=== PATIENT | male | born 1970 | race Caucasian/White ===

== ENCOUNTER → 2022-12-24 09:33 | Outpatient (CLI) | payer OTHER, SELFPAY ==
--- NOTE | ~2022-12-24 | US_ITS ---
EXAMINATION: US venous doppler [facility] DATE: 12/24/2022 10:06 INDICATION: L LE venous doppler to evaluate for DVT . TECHNIQUE: Grayscale images without and with compression and Doppler images of the left lower extremi ty veins were obtained. COMPARISON: None FINDINGS: The left common femoral vein, profunda femoral vein, femoral vein, popliteal vein, peroneal vein, pos terior tibial veins, gastrocnemius vein, and greater saphenous vein are patent. IMPRESSION: 1. Patent left lower extremity veins. No evidence of deep venous thrombosis. Reviewed, dictated and finalized at location K.
== END ==
PROVIDERS: PCP Physician Assistant; Visit Provider Physician Assistant
DX: I82.409 Acute embolism and thrombosis of unspecified deep veins of unspecified lower extremity (principal)
CPT/HCPCS: 93971

== ENCOUNTER 2025-05-19 07:14 | Outpatient (CLI) | payer BC, SELFPAY ==
--- OUTSIDE RECORDS SUMMARY | 2025-05-19 07:18 | XMS_ITS | Encounter Summary ---
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 Gender Identity Not on file Sexual Orientation Not on file documented as of this encounter Plan of Treatment Upcoming Encounters Date Type Department Care Team (Late st Contact Info) Description 05/25/2025 6:30 AM CDT Appointment [facility] [place] [address] Sumanth Fuller DO [address] [facility] [place] [address] documented as of this encounter Visit Diagnoses Not on filedocumented in this encounter Care Teams Timber Surveyor Relationship Specialty Start Date End Date None, Provider, PCP - General 05/07/22 05/17/25 Sumanth Fuller DO [address] [facility] [place] [address] PCP - General INTERNAL MEDICINE 05/18/25 documented as of this encounter
--- OUTSIDE RECORDS SUMMARY | 2025-05-19 07:18 | XMS_ITS | Patient Health Record ---
Author Organization [facility] Address [address] [place] [address] Support Name Relationship Address Phone Ruben Zelaya Guarantor Unknown [phone] Reason For Referral No Information Problems Problem Type SNOMED Code ICD Code Onset Dates Problem Status W/U Status Risk Notes Problem Hallux valgus (acquired) (unspecified foot) (M20.10) 01/31/2016 Active confirmed Plan Of Treatment No Information Insurance Providers Payer Name Payer Address Payer Phone Subscriber Number Group Number Insured Name Patient Relationship to Insured Coverage Start Date Coverage End Date [facility] [address] [place], [place] [id number] Ruben Zelaya Self - patient is the insured 6 Medical (General) History Surgical History Surgery Date(Month/Year) Surgery Foot surgery left foot
--- OUTSIDE RECORDS SUMMARY | 2025-05-19 07:18 | XMS_ITS | Clinical Summary ---
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 Gender Identity Not on file Sexual Orientation Not on file Last Filed Vital Signs Vital Sign Reading Time Taken Comments Blood Pressure 152/103 06/14/2022 6:50 AM CDT Pulse 79 06/14/2022 6:50 AM CDT Temperature 36.2 C (97.1 F) 06/14/2022 6:50 AM CDT Respiratory Rate 20 06/14/2022 6:50 AM CDT Oxygen Saturation 97% 06/14/2022 6:50 AM CDT Inhaled Oxygen Concentration - - Weight 87.1 kg (192 lb) 06/14/2022 6:50 AM CDT Height 180.3 cm (5' 11) 06/14/2022 6:50 AM CDT Body Mass Index 26.78 06/14/2022 6:50 AM CDT Plan of Treatment Upcoming Encounters Date Type Department Care Team (Late st Contact Info) Description 05/25/2025 6:30 AM CDT Appointment [facility] [place] [address] Sumanth Fuller DO [address] [employer] [facility] [place] [address] Health Maintenance Due Date Last Done Comments Colorectal Cancer Screening Colonoscopy (10 Years) 1968 Annual Physical 1971 Hepatitis C 1986 DTaP, Tdap and Td Vaccines ( 1 - Tdap) 1987 Hepatitis B Vaccines (1 of 3 - 19+ 3-dose series) 1987 Pneumococcal Vaccine: 50+ Ye ars (1 of 1 - PCV) 2018 Zoster Vaccines (1 of 2) 2018 COVID-19 Vaccine ( - 2023-2 5 season) 2024 Meningococcal B Vaccine Aged Out No l onger eligible based on patient's age to complete this topic Meningococcal Vaccine Aged Out No jono pipo eligible based on patient's age to complete this topic RSV Immunizations Under 20 Months Aged Out No longer eligible based on patient's age to complete this topic Insurance Care Teams Outdoor Fitness Trainer Relationship Specialty Start Date End Date Sumanth Fuller DO [address] [employer] [address] [address] PCP - General INTERNAL MEDICINE 05/18/25
--- OUTSIDE RECORDS SUMMARY | 2025-05-19 07:18 | XMS_ITS | Clinical Summary ---
Author Organization [facility] Address [address] [place] [address] Care Team Providers Care Canned Food Reconditioning Inspector Name Role Phone Provider, None Primary Care Provider Unavailabl e Medications Phenylephrine HCl (AFRIN ALLERGY NA) by Nasal route. Active Social History Tobacco Use Types Packs/Day Years Used Date Smoking Tobacco: Never Alcohol Use Standard Drinks/Week Comments Not Asked 0 (1 standard drink = 0.6 oz pur e alcohol) Sex and Gender Information Value Date Recorded Sex Assigned at Not on file Legal Sex Male 3:30 AM EXTENDER Gender Identity Not on file Sexual Orientation Not on file Last Filed Vital Signs Vital Sign Reading Time Taken Comments Blood Pressure 133/80 09/02/2015 9:02 AM EXTENDER Pulse 82 09/02/2015 9:02 AM EXTENDER Temperature 36.8 C (98.2 F) 09/02/2015 9:02 AM EXTENDER Respiratory Rate 16 09/02/2015 9:02 AM EXTENDER Oxygen Saturation 96% 09/02/2015 9:02 AM EXTENDER Inhaled Oxygen Concentration - - Weight 81.6 kg (180 lb) 09/02/2015 9:02 AM EXTENDER Height 180.3 cm (5' 11) 09/02/2015 9:02 AM EXTENDER Body Mass Index 25.1 09/02/2015 9:02 AM EXTENDER Plan of Treatment Health Maintenance Due Date Last Done Comments Hepatitis C Virus (HCV) Screening 1968 TdaP Immunization 1968 Hepatitis B Immunization (1 of 3 - 19+ 3-dose series) 1987 Cologuard 2013 Colonoscopy 2013 Colorectal Cancer Screening 2013 Immunochemical Fecal Occult Blood 2013 Pneumococcal Immunization (5 0+ years) (1 of 1 - PCV) 2018 Zoster Immunization (1 of 2) 2018 SARS-COV-2 Immunization (1 - 2023- season) 2024 Influenza Immunization (#1) 2025 Respiratory Syncytial Virus (RSV) Immunization (Adult) (1 - 1-dose 75+ series) 2043 Human Papillomavirus (HPV) Immunization Aged Out No longer eligible b ased on patient's age to complete this topic Meningococcal Immunization (ACWY) Aged Out No longer eligible based on patient's age to complete this topic Rotavirus Immunization Aged Out No lo nger eligible based on patient's age to complete this topic [place] [address] [place] [address] Care Teams Canned Food Reconditioning Inspector Relationship Specialty Start Date End Date Provider, None [place] PCP - General 09/02/15
--- OUTSIDE RECORDS SUMMARY | 2025-05-19 07:18 | XMS_ITS | Clinical Summary ---
Author Organization [facility] Address [address] [place] [address] Care Team Providers Care Dice Dealer Name Role Phone Unavailable Primary Care Provider Unavailabl e Source Comments [facility],non-owned Affiliates and Associated Physician Practices is amultiple site organization consisting of ambulatory clinics and hospital sitesin [place], [place], [place] and [place]. This disclosure is being madepursuant to the Care Everywhere program and may not contain all information available regarding this patient. Last updated 18.[facility] Allergies No known active allergies Medications * Be aware that medications may not be up to date on this document. Alwaysverify current medications with the patient. methylPREDNISol one (Medrol Dosepak) 4 MG tablet Take by mouth as directed 1 Each 06/19/2022 Active Active Problems Problem Noted Date Diagnosed Date Acute pain of left knee 06/19/2022 Social History Tobacco Use Types Packs/Day Years Used Date Smoking Tobacco: Never Assessed Sex and Gender Information Value Date Recorded Sex Assigned at Not on file Legal Sex Male 12:14 PM CDT Gender Identity Not on file Sexual Orientation Not on file Plan of Treatment Health Maintenance Due Date Last Done Comments COLOGUARD (AGES 45-75) - COL ON CA SCREENING 1968 COLON MONITORING 1968 COLONOSCOPY - COLON CA SCREENING 1968 CT COLONOGRAPHY - COLON CA SCREENING 1968 Colorectal Cancer Screening 1968 FIT - COLON CA SCREENING 1968 FLEX SIG - COLON CA SCREENING 1968 LIPID TESTING 1968 HIV SCREENING 1983 HEPATITIS C SCREENING 06/29/1986 DTAP/TDAP/TD VACCINES (1 - Tdap) 1987 HEPATITIS B VACCINE (1 of 3 - 19+ 3-dose series) 1987 PNEUMOCOCCAL VACCINE 50+ (1 of 1 - PCV) 2018 ZOSTER VACCINE (1 of 2) 2018 COVID-19 VACCINE (1 - 2023-2 5 season) 2024 DEPRESSION SCREENING 10/07/2024 INFLUENZA VACCINE (#1) 2025 HIB VACCINE Aged Out No longer eligi ble based on patient's age to complete this topic HPV VACCINE Aged Out No longer eligi ble based on patient's age to complete this topic MENINGOCOCCAL (Group B) VACC INE SHARED DECISION-MAKING Aged Out No longer eligibl e based on patient's age to complete this topic MENINGOCOCCAL GROUPS A/C/Y/W VACCINE Aged Out No longer eligible b ased on patient's age to complete this topic Insurance [employer]
[2025-05-19 08:30] LABS: Cholesterol 170 mg/dL (0-200); HDL Direct 55 mg/dL; Triglycerides 83 mg/dL (<150)
[2025-05-20 14:09] LABS: Folate, Hemolysate 455.0 ng/mL (Not Estab.); Folate, RBC 930 ng/mL (>498); Hematocrit 48.9 % (37.5-51.0)
== END 2025-05-19 07:15 | disposition home or self-care (01) ==
PROVIDERS: PCP Internal Medicine; Visit Provider Internal Medicine
DX: R41.3 Other amnesia (principal); E78.5 Hyperlipidemia, unspecified
CPT/HCPCS: 36415; 80061; 82747

== ENCOUNTER 2025-06-04 09:46 | Outpatient (CLI) | payer BC, SELFPAY ==
--- NOTE | ~2025-06-04 | MR_ITS ---
EXAMINATION: MR brain/brain stem wo con DATE: 06/04/2025 10:21 INDICATION: Amnesia TECHNIQUE: Magnetic resonance imaging (MRI) of the brain and brainstem was performed without intravenous contrast. Sequences included sagittal and axial T1-weighted SE, axial diffusion-weighted FS SE, axial T2*-weighted GRE, axial T2-weighted FLAIR, and axial T2-weighted FSE. Apparent diffusion coefficient (ADC) maps were created. COMPARISON: None. FINDINGS: There are no areas of restricted diffusion to suggest acute infarction. No intracranial hemorrhage or abnormal intracranial mass lesion. There are no intraparenchymal signal abnormalities seen on the other pulse sequences. The ventricles are symmetric and normal in size. There are no abnormal extra-axial fluid collections. Flow voids are seen in the cerebral arteries on the T2- weighted sequences consistent with their expected patency. Visualized orbits and soft tissues are unremarkable. IMPRESSION: 1. Normal brain MR. Reviewed, dictated and finalized at location A. IMPRESSION: 1. Normal brain MR.
== END 2025-06-04 09:47 | disposition home or self-care (01) ==
LOC: MICIMG 09:46
PROVIDERS: PCP Internal Medicine; Visit Provider Internal Medicine
DX: R41.3 Other amnesia (principal)
CPT/HCPCS: 70551